=== PATIENT | male | born 1995 | race Caucasian/White ===

== ENCOUNTER 2019-02-03 19:30 | Emergency (ER) | payer BC ==
[~2019-02-03] VITALS: Ht 180.3 cm; Wt 90.7 kg
[2019-02-03 19:40] VITALS: BP 142/95
--- NOTE | 2019-02-03 19:40 | NUR ---
ED Nurse Note: Patient walk in c/o sharp cramping pain in bilateral thighs. Pain is worse in right thigh. Patient reports pain started yesterday. Patient denies injury. patient is able to ambulate, no trauma noted on patients legs. will wait for further orders
--- NOTE | 2019-02-03 19:53 | Emergency Room Report ---
History of Present Illness General Chief Complaint: Pain Source: Patient Present Illness HPI 23-year-old male presents to the emergency department complaining of 7 out of 10 in severity pain in the anterior thighs since yesterday. Patient reports sharp cramping intermittently. Patient denies strenuous activities or recent trauma/fall. Patient denies fevers, chills, dysuria, urinary frequency, testicular pain or swelling, low back pain or swollen tender lymph nodes. Patient states originally symptoms started in the left thigh however now his symptoms are majority in the right thigh but still continued bilaterally. Patient denies dizziness or palpitations. Denies erythema, warmth or bruising. Denies paresthesias. Allergies: Coded Allergies: No Known Allergies (Unverified , 02/03/19) Patient History Past Medical History: see triage record Past Surgical History: none Pertinent Family History: none Reviewed Nursing Documentation: PMH: Agreed; PSxH: Agreed Nursing Documentation-PMH Past Medical History: No Stated History Review of Systems All Other Systems: negative except mentioned in HPI Physical Exam Vital Signs Date Time Temp Pulse Resp B/P (MAP) Pulse Ox O2 Delivery O2 Flow Rate FiO2 02/03/19 19:40 98.2 69 16 148/95 99 Room Air Sp02 EP Interpretation: reviewed, normal General Appearance: no apparent distress, alert, GCS 15, non-toxic Head: normocephalic, atraumatic Eyes: bilateral eye normal inspection, bilateral eye PERRL ENT: hearing grossly normal, normal voice Neck: full range of motion Respiratory: lungs clear, normal breath sounds, speaking full sentences Cardiovascular #1: regular rate, rhythm Rectal: deferred Genitourinary: normal inspection Musculoskeletal: back normal, gait/station normal, normal range of motion, non- tender - no appreciable ttp to the thighs on PE Neurologic: alert, oriented x3, responsive, motor strength/tone normal, sensory intact, normal gait, speech normal, grossly normal Psychiatric: judgement/insight normal Skin: normal color, no rash, warm/dry, well hydrated Medical Decision Making PA Attestation Dr. Marino is my supervising Physician whom patient management has been discussed with. Diagnostic Impression: Primary Impression: Myalgia ER Course 23-year-old male presents to the emergency department complaining of 7 out of 10 in severity pain in the anterior thighs since yesterday. Patient reports sharp cramping intermittently. Patient denies strenuous activities or recent trauma/fall. Patient denies fevers, chills, dysuria, urinary frequency, testicular pain or swelling, low back pain or swollen tender lymph nodes. Patient states originally symptoms started in the left thigh however now his symptoms are majority in the right thigh but still continued bilaterally. Patient denies dizziness or palpitations. Denies erythema, warmth or bruising. Denies paresthesias. Ddx considered but are not limited to Sprain/Strain/Spasm, electrolyte imbalance, dehydration, myositis , myalgia just to name a few. Vital signs: are WNL, pt. is afebrile H&PE are most consistent with musculoskeletal injury will perform imaging to r/ o fractures/dislocations. ORDERS: - BMP: WNL ED INTERVENTIONS: - none -I do not identify an emergent condition at this time. With current presentation , pt. is stable for close outpatient follow up and conservative treatment. D/ w pt. to return promptly to ED with worsening or new symptoms.- Pt. verbalizes' understanding and agreement with proposed treatment plan.proposed treatment plan. DISCHARGE: At this time pt. is stable for d/c to home. Will provide printed patient care instructions, and any necessary prescriptions. Care plan and follow up instructions have been discussed with the patient prior to discharge. Labs Test 02/03/19 20:01 Sodium Level 139 MMOL/L (136-145) Potassium Level 3.9 MMOL/L (3.5-5.1) Chloride Level 102 MMOL/L (98-107) Carbon Dioxide Level 29 MMOL/L (21-32) Anion Gap 8 mmol/L (5-15) Blood Urea Nitrogen 11 mg/dL (7-18) Creatinine 0.9 MG/DL (0.55-1.30) Estimat Glomerular Filtration Rate > 60 mL/min (>60) Glucose Level 91 MG/DL (74-106) Calcium Level 9.6 MG/DL (8.5-10.1) Last Vital Signs Date Time Temp Pulse Resp B/P (MAP) Pulse Ox O2 Delivery O2 Flow Rate FiO2 02/03/19 19:40 98.2 69 16 148/95 99 Room Air Disposition: HOME, SELF-CARE Condition: Stable Scripts Naproxen* (NAPROXEN*) 500 Mg Tablet 500 MG ORAL TWICE A DAY, #20 TAB Prov: Rebeca Zepeda 02/03/19 Patient Instructions: Muscle Pain, Adult Additional Instructions: Take medications as directed. Follow up with a Primary Care Provider in 3-5 days, even if your symptoms have resolved. --Please review list of primary care clinics, if you do not already have a primary care provider Return sooner to ED if new symptoms occur, or current symptoms become worse. - Please note that this Emergency Department Report was dictated using [employer] manager technology software, occasionally this can lead to erroneous entry secondary to interpretation by the dictation equipment. Rebeca Zepeda Feb 03, 2019 19:53
[2019-02-03 20:31] LABS: ANION GAP 8 mmol/L (5-15); BLOOD UREA NITROGEN 11 mg/dL (7-18); CALCIUM 9.6 MG/DL (8.5-10.1); CARBON DIOXIDE 29 MMOL/L (21-32); CHLORIDE 102 MMOL/L (98-107); CREATININE 0.9 MG/DL (0.55-1.30); POTASSIUM 3.9 MMOL/L (3.5-5.1); SODIUM 139 MMOL/L (136-145)
[2019-02-03] MEDS ORDERED: NAPROXEN500 M2 ORAL (20:40)
[2019-02-03 20:52] VITALS: BP 140/88
--- NOTE | 2019-02-03 20:53 | NUR ---
ER DISCHARGE NOTE: Patient is cleared to be discharged per ERMD, pt is aox4, on room air, with stable vital signs. pt was given dc and prescription instructions, pt was able to verbalize understanding, pt id band removed without complications. pt is able to ambulate with steady gait. pt took all belongings.
== END 2019-02-03 20:53 | disposition home or self-care (01) ==
LOC: EMR 20:17
DX: M79.652 Pain in left thigh (principal); M79.651 Pain in right thigh; M79.10 Myalgia, unspecified site
CPT/HCPCS: 36415; 80048; 99283